=== PATIENT | female | born 2000 | race Asian ===

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

== ENCOUNTER 2022-01-27 15:54 | Emergency (ER) | payer OTHER ==
[~2022-01-27] VITALS: Ht 167.6 cm; Wt 54.4 kg
[2022-01-27 16:00] VITALS: TEMP 97.3
[2022-01-27 16:55] VITALS: BP 118/66
== END 2022-01-27 17:00 | disposition home or self-care (01) ==
LOC: ED 15:54
DX: T18.128A Food in esophagus causing other injury, initial encounter (principal); X58.XXXA Exposure to other specified factors, initial encounter; Y92.89 Other specified places as the place of occurrence of the external cause
CPT/HCPCS: 96372; 99283; J1610

== ENCOUNTER 2022-02-13 12:28 | Emergency (ER) | payer OTHER ==
[~2022-02-13] VITALS: Ht 167.6 cm; Wt 54.4 kg
[2022-02-13 14:30] VITALS: BP 101/62; TEMP 97.6
== END 2022-02-13 14:30 | disposition home or self-care (01) ==
LOC: ED 12:28
DX: T18.9XXA Foreign body of alimentary tract, part unspecified, initial encounter (principal); X58.XXXA Exposure to other specified factors, initial encounter; Y92.511 Restaurant or cafe as the place of occurrence of the external cause
CPT/HCPCS: 99283

== ENCOUNTER 2022-06-11 09:12 | Outpatient (CLI) | payer OTHER | END 2022-06-11 19:54 | disposition home or self-care (01) | LOC: US 09:12 | PROVIDERS: ATTEND Internal Medicine Nephrology | DX: N27.0 Small kidney, unilateral (principal); N28.1 Cyst of kidney, acquired; N28.89 Other specified disorders of kidney and ureter; R31.9 Hematuria, unspecified ==